=== PATIENT | female | born 2000 | race Two or more races ===

== ENCOUNTER 2022-11-14 14:21 | Observation (INO) | payer MEDICAID, OTHER | END 2022-11-14 16:00 | disposition home or self-care (01) | LOC: LDRP 14:21 | PROVIDERS: ADMIT Obstetrics & Gynecology; ATTEND Obstetrics & Gynecology | DX: O62.9 Abnormality of forces of labor, unspecified (principal); Z3A.34 34 weeks gestation of pregnancy | CPT/HCPCS: 59025; 81002; 94760; G0378 ==